=== PATIENT | male | born 1990 | race Caucasian/White ===

== ENCOUNTER 2017-02-05 18:27 | Emergency (ER) | payer BC ==
[2017-02-05 20:00] VITALS: BP 140/95
[2017-02-05] MEDS ORDERED: Sodium Chloride 0.9% 10 ML Syringe FLUSH PRN (20:22)
[2017-02-05] MEDS ORDERED: Ketorolac 30 MG/ML SDV IVPUSH ONE (20:23)
[2017-02-05] MEDS ORDERED: Ondansetron 4 MG/2 ML SDV IVPUSH ONE (20:23)
[2017-02-05] MEDS ORDERED: Sodium Chloride 0.9% 1,000 ML IV ONE (20:23)
[2017-02-05] MEDS ORDERED: Iopamidol 612 MG/ML 100 ML Bottle IV SCH (20:45)
[2017-02-05] MEDS ORDERED: Sodium Chloride 0.9% 80 ML IV SCH (20:45)
--- NOTE | 2017-02-05 20:52 | EDM.PDOC ---
ED HPI GENERAL MEDICAL PROBLEM - General Chief Complaint: Abdominal Pain Stated Complaint: ABDOMINAL PAIN/FEVER Time Seen by Provider: 02/05/17 20:00 Source of Information: Reports: Patient History Limitations: Reports: No Limitations - History of Present Illness INITIAL COMMENTS - FREE TEXT/NARRATIVE: Eulalio is a 26 year old male who presents to the ED today with c/o generalized abdominal pain, unchanged for four days, associated nausea, no vomiting, diarrhea or blood in stool, c/o fever/chills. Denies any hx of bowel disorders. Onset: Gradual Duration: Day(s): (4) Mid-Anterior Abdomen Pain Score (Numeric/FACES): 7 - Related Data Allergies Allergy/AdvReac Type Severity Reaction Status Date / Time No Known Allergies Allergy Verified 02/05/17 20:04 Home Meds: Home Meds NK [No Known Home Meds] 02/05/17 [History] Past Medical History - Past Health History Medical/Surgical History: Denies Medical/Surgical History Social & Family History - Tobacco Use Smoking Status *Q: Never Smoker Second Hand Smoke Exposure: No - Caffeine Use Caffeine Use: Reports: Coffee - Alcohol Use Days Per Week of Alcohol Use: 2 Number of Drinks Per Day: 2 Total Drinks Per Week: 4 Date of Last Drink: 02/03/17 Time of Last Drink: 19:00 - Recreational Drug Use Recreational Drug Use: No ED ROS GENERAL - Review of Systems Review Of Systems: ROS reveals no pertinent complaints other than HPI. ED EXAM, GI/ABD - Physical Exam Exam: See Below Exam Limited By: No Limitations General Appearance: Alert, WD/WN, No Apparent Distress Throat/Mouth: Normal Inspection, Normal Oropharynx Head: Atraumatic Neck: Normal Inspection, Supple, Non-Tender Respiratory/Chest: No Respiratory Distress, Lungs Clear, Normal Breath Sounds Cardiovascular: Normal Peripheral Pulses, Regular Rate, Rhythm, No Murmur GI/Abdominal: Normal Bowel Sounds, Soft, Other (generalized tenderness on exam) (Male) Exam: Deferred Extremities: Normal Inspection Neurological: Alert, Oriented, CN II-XII Intact Psychiatric: Normal Affect Skin Exam: Warm, Dry, Intact Lymphatic: No Adenopathy Course - Vital Signs Text/Narrative:: Eulalio is an otherwise healthy 26 year old male who presents to the ED today with c/o generalized abdominal pain and nausea for the last 4 days. Please refer to HPI and focused exam. Patient on exam is well hydrated and non-toxic appearing. Patient has no focal tenderness on exam, doubtful acute infectious process. PIV established and patient was given Zofran for nausea and Toradol for pain with good improvement in his symptoms, blood work obtained including CBC, CMP and lipase which are all unremarkable. CT scan obtained and is negative for any acute pathology. Likely viral in origin, discussed with patient, will send home with Zofran as needed for nausea, told him to stay well hydrated, follow up with PCP in one week. Reasons to return to the ED discussed in detail. Patient agreeable and discharged in stable condition. Last Recorded V/S: Last Vital Signs Temp 36.8 C 02/05/17 19:59 Pulse 70 02/05/17 19:59 Resp 16 02/05/17 19:59 BP 140/95 H 02/05/17 19:59 Pulse Ox 99 02/05/17 19:59 - Orders/Labs/Meds Orders: Active Orders 24 hr Category Date Time Status Peripheral IV Care [RC] . DIRECTED Care 02/05/17 20:23 Active Abdomen Pelvis w Cont [CT] Stat Exams 02/05/17 20:37 Taken Iopamidol [Isovue-300 (61%)] Med 02/05/17 20:45 Active 100 ml IV . DIRECTED Sodium Chloride 0.9% [Normal Saline] 80 ml Med 02/05/17 20:45 Active IV ASDIRECTED Sodium Chloride 0.9% [Saline Flush] Med 02/05/17 20:22 Active 10 ml FLUSH ASDIRECTED PRN Sodium Chloride 0.9% [Saline Flush] Med 02/05/17 20:39 Active 10 ml FLUSH ASDIRECTED PRN Peripheral IV Insertion Adult [OM.PC] Routine Oth 02/05/17 20:22 Ordered Medication Orders Sodium Chloride (Normal Saline) 80 mls @ 3 mls/sec IV ASDIRECTED ERLIN Last Admin: 02/05/17 20:53 Dose: 3 mls/sec Iopamidol (Isovue-300 (61%)) 100 ml IV . DIRECTED ERLIN Last Admin: 02/05/17 20:53 Dose: 100 ml Sodium Chloride (Saline Flush) 10 ml FLUSH ASDIRECTED PRN PRN Reason: Keep Vein Open Sodium Chloride (Saline Flush) 10 ml FLUSH ASDIRECTED PRN PRN Reason: Keep Vein Open Last Admin: 02/05/17 21:06 Dose: 10 ml Admin: 02/05/17 20:53 Dose: 10 ml Labs: Laboratory Tests 02/05/17 02/05/17 Range/Units 20:33 20:33 WBC 8.6 (4.5-11.0) K/uL RBC 5.52 (4.30-5.90) M/uL Hgb 15.5 H (12.0-15.0) g/dL Hct 45.9 (40.0-54.0) % MCV 83 (80-98) fL MCH 28 (27-31) pg MCHC 34 (32-36) % Plt Count 248 (150-400) K/uL Neut % (Auto) 55 (36-66) % Lymph % (Auto) 29 (24-44) % Garrard % (Auto) 12 H (2-6) % Eos % (Auto) 4 (2-4) % Baso % (Auto) 1 (0-1) % Sodium 139 L (140-148) mmol/L Potassium 4.7 (3.6-5.2) mmol/L Chloride 102 (100-108) mmol/L Carbon Dioxide 32 (21-32) mmol/L Anion Gap 9.7 (5.0-14.0) mmol/L BUN 10 (7-18) mg/dL Creatinine 1.1 (0.8-1.3) mg/dL Est Cr Clr Drug Dosing 100.87 mL/min Estimated GFR (MDRD) > 60 (>60) Glucose 118 H (74-106) mg/dL Calcium 9.4 (8.5-10.1) mg/dL Total Bilirubin 0.4 (0.2-1.0) mg/dL AST 19 (15-37) U/L ALT 26 (12-78) U/L Alkaline Phosphatase 129 H (46-116) U/L Total Protein 7.7 (6.4-8.2) g/dL Albumin 4.3 (3.4-5.0) g/dL Globulin 3.4 (2.3-3.5) g/dL Albumin/Globulin Ratio 1.3 (1.2-2.2) Lipase 144 (73-393) U/L Meds: Medications Generic Name Dose Route Start Last Admin Trade Name Freq PRN Reason Stop Dose Admin Sodium Chloride 80 mls @ 3 mls/sec 02/05/17 20:45 02/05/17 20:53 Normal Saline IV 3 mls/sec ASDIRECTED ERLIN Administration Iopamidol 100 ml 02/05/17 20:45 02/05/17 20:53 Isovue-300 (61%) IV 100 ml . DIRECTED ERLIN Administration Sodium Chloride 10 ml 02/05/17 20:22 Saline Flush FLUSH ASDIRECTED PRN Keep Vein Open Sodium Chloride 10 ml 02/05/17 20:39 02/05/17 21:06 Saline Flush FLUSH 10 ml ASDIRECTED PRN Administration Keep Vein Open Discontinued Medications Generic Name Dose Route Start Last Admin Trade Name Andreia PRN Reason Stop Dose Admin Sodium Chloride 1,000 mls @ 999 mls/hr 02/05/17 20:23 02/05/17 21:02 Normal Saline IV 02/05/17 21:23 999 mls/hr .BOLUS ONE Administration Ketorolac Tromethamine 30 mg 02/05/17 20:23 02/05/17 21:03 Toradol IVPUSH 02/05/17 20:24 30 mg ONETIME ONE Administration Ondansetron HCl 4 mg 02/05/17 20:23 02/05/17 21:01 Zofran IVPUSH 02/05/17 20:24 4 mg ONETIME ONE Administration Departure - Departure Time of Disposition: 22:15 Disposition: Home, Self-Care 01 Condition: Good Clinical Impression: Gastroenteritis - Discharge Information Instructions: Viral Gastroenteritis, Adult, [facility] Forms: ED Department Discharge Additional Instructions: Stay well hydrated. Take Zofran as needed for nausea. See primary doctor in one week. Return to the ED with any complications. - My Orders Last 24 Hours: My Active Orders 02/05/17 20:22 Sodium Chloride 0.9% [Saline Flush] 10 ml FLUSH ASDIRECTED PRN Peripheral IV Insertion Adult [OM.PC] Routine 02/05/17 20:23 Peripheral IV Care [RC] . DIRECTED 02/05/17 20:37 Abdomen Pelvis w Cont [CT] Stat 02/05/17 20:39 Sodium Chloride 0.9% [Saline Flush] 10 ml FLUSH ASDIRECTED PRN 02/05/17 20:45 Iopamidol [Isovue-300 (61%)] 100 ml IV . DIRECTED Sodium Chloride 0.9% [Normal Saline] 80 ml IV ASDIRECTED - Assessment/Plan Last 24 Hours: My Active Orders 02/05/17 20:22 Sodium Chloride 0.9% [Saline Flush] 10 ml FLUSH ASDIRECTED PRN Peripheral IV Insertion Adult [OM.PC] Routine 02/05/17 20:23 Peripheral IV Care [RC] . DIRECTED 02/05/17 20:37 Abdomen Pelvis w Cont [CT] Stat 02/05/17 20:39 Sodium Chloride 0.9% [Saline Flush] 10 ml FLUSH ASDIRECTED PRN 02/05/17 20:45 Iopamidol [Isovue-300 (61%)] 100 ml IV . DIRECTED Sodium Chloride 0.9% [Normal Saline] 80 ml IV ASDIRECTED
[2017-02-05] MEDS: Sodium Chloride 0.9% 10 ML Syringe FLUSH PRN ×2 (20:53→21:06)
== END 2017-02-05 22:12 | disposition home or self-care (01) ==
LOC: JP.ED 18:27
DX: K52.9 Noninfective gastroenteritis and colitis, unspecified (principal)
CPT/HCPCS: 36415; 74177; 80053; 83690; 85025; 99284; J1885; J2405; J7030; J7040; J7050; Q9967